=== PATIENT | female | born 1955 | race Caucasian/White ===

== ENCOUNTER → 2017-01-16 | Outpatient (CLI) | payer OTHER ==
[2017-01-16 14:05] LABS: HEMOGLOBIN 12.2 gm/dl (12.3-15.3); RED BLOOD COUNT 4.35 M/UL (4.00-5.10); WHITE BLOOD COUNT 11.7 K/UL (4.5-11.0)
== END ==
LOC: LAB 13:17
PROVIDERS: Internal Medicine Nephrology
DX: N17.9 Acute kidney failure, unspecified (principal); E78.5 Hyperlipidemia, unspecified
CPT/HCPCS: 36415; 80053; 82550; 82570; 83970; 84100; 84156; 85027; 89050

== ENCOUNTER → 2017-01-16 | Outpatient (CLI) | payer OTHER | LOC: KOH-I 11:58 | DX: N17.9 Acute kidney failure, unspecified (principal); N28.1 Cyst of kidney, acquired; N28.89 Other specified disorders of kidney and ureter | CPT/HCPCS: 76775 ==

== ENCOUNTER → 2020-11-04 | Outpatient (CLI) | payer OTHER | LOC: LAB 10:19 | PROVIDERS: Internal Medicine Nephrology | DX: N18.30 Chronic kidney disease, stage 3 unspecified (principal); E87.6 Hypokalemia; N25.81 Secondary hyperparathyroidism of renal origin | CPT/HCPCS: 36415; 80053; 83735; 83970 ==

== ENCOUNTER → 2021-03-30 | Outpatient (CLI) | payer OTHER | LOC: LAB 11:16 | PROVIDERS: Internal Medicine Nephrology | DX: N18.30 Chronic kidney disease, stage 3 unspecified (principal) | CPT/HCPCS: 36415; 80053; 82570; 83735; 84156 ==

== ENCOUNTER → 2021-05-05 | Outpatient (CLI) | payer OTHER | LOC: LAB 11:12 | PROVIDERS: Internal Medicine Nephrology | DX: N18.32 Chronic kidney disease, stage 3b (principal) | CPT/HCPCS: 36415; 80048 ==

== ENCOUNTER → 2021-06-01 | Outpatient (CLI) | payer OTHER | LOC: LAB 10:16 | PROVIDERS: Internal Medicine Nephrology | DX: N18.32 Chronic kidney disease, stage 3b (principal); N25.81 Secondary hyperparathyroidism of renal origin; E87.6 Hypokalemia | CPT/HCPCS: 80053; 83735; 83970; 84100 ==

== ENCOUNTER → 2021-11-16 | Outpatient (CLI) | payer OTHER | LOC: EXRD 14:49 | DX: N18.32 Chronic kidney disease, stage 3b (principal) | CPT/HCPCS: 76775 ==

== ENCOUNTER → 2021-11-30 | Outpatient (CLI) | payer OTHER | LOC: LAB 11:41 | DX: N39.0 Urinary tract infection, site not specified (principal) | CPT/HCPCS: 82570; 84156; 87077; 87086; 87186 ==

== ENCOUNTER → 2021-12-05 | Outpatient (CLI) | payer OTHER | LOC: OPSV 10:42 | DX: N39.0 Urinary tract infection, site not specified (principal) | CPT/HCPCS: 96372; J1335 ==

== ENCOUNTER → 2021-12-06 | Outpatient (CLI) | payer OTHER | LOC: OPSV 10:38 | DX: N39.0 Urinary tract infection, site not specified (principal) | CPT/HCPCS: 96372; J1335 ==

== ENCOUNTER → 2021-12-07 | Outpatient (CLI) | payer OTHER ==
[~2021-12-07] VITALS: Ht 152.4 cm; Wt 79.4 kg
== END ==
LOC: OPSV 10:44
DX: N39.0 Urinary tract infection, site not specified (principal)
CPT/HCPCS: 96372; J1335

== ENCOUNTER → 2021-12-08 | Outpatient (CLI) | payer OTHER ==
[~2021-12-08] VITALS: Ht 152.4 cm; Wt 79.4 kg
== END ==
LOC: OPSV 10:22
DX: N39.0 Urinary tract infection, site not specified (principal)
CPT/HCPCS: 96372; J1335

== ENCOUNTER → 2021-12-09 | Outpatient (CLI) | payer OTHER ==
[~2021-12-09] VITALS: Ht 152.4 cm; Wt 79.4 kg
== END ==
LOC: OPSV 10:40
DX: N39.0 Urinary tract infection, site not specified (principal)
CPT/HCPCS: 96372; J1335

== ENCOUNTER → 2022-02-01 | Outpatient (CLI) | payer OTHER | LOC: LAB 09:56 | PROVIDERS: Internal Medicine Nephrology | DX: N18.32 Chronic kidney disease, stage 3b (principal); N25.81 Secondary hyperparathyroidism of renal origin; N39.0 Urinary tract infection, site not specified | CPT/HCPCS: 36415; 80053; 82570; 83970; 84100; 84156 ==